=== PATIENT | female | born 1965 | race Caucasian/White ===

== ENCOUNTER 2025-01-24 12:45 | Day surgery (SDC) | payer BC, SELFPAY ==
--- OUTSIDE RECORDS SUMMARY | 2024-12-13 15:09 | XMS_ITS | Data Portability ---
Author Organization [facility] [employer], Meludia Address [address] [address] Care Team Providers Care Service Tech Name Role Phone EMILIANA CACERES Referring Provider [phone] EMILIANA CACERES Referring Provider [phone] EMILIANA CACERES Primary Care Provider [phone] Assessment Encounter Date Assessment Date Assessment LastModified by Organization Details LastModified Time 03/14/2023 03/14/2023 IMPRESSION: --Carpal tunnel syndrome, plausibly triggered by paint stripping activities and or aging mattress, explaining ~ onset of waking from sleep with 1 to 2-minute episodes of numbness in right and/or left hand/fingers; --Muscular syndrome, 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 --Uncertain neurological diagnosis for ~August/2021 onset of few second episodes of electric feeling in the center of her chest occurring a few times during lying in bed before going to sleep; --Neurological exam is normal. IMAGING Brain MRI without contrast December 15, 2022, per dictation, [facility] Dr. Kamar Douglas: Mild? A few small areas? Of increased T2/flair signal in subcortical and periventricular white matter bilaterally which is thought nonspecific. We discussed that the brain imaging results are benign. She mentions at the beginning of our encounter that she has some questions on details of the dictation. We do not to address this. I will try to address this at a follow-up. She agrees to appropriate blood work in the context of carpal tunnel syndrome. I suggest that she uses carpal tunnel syndrome splints that she has obtained during the day and any manual activities that are similar to the pain stripping activity? s he mentions that she will never do pain stripping again. We also discussed that if the carpal tunnel splints that she has are too awkward to wear during manual activities, she could obtain a Occupational Therapy referral to moved softer more appropriate carpal tunnel splints for daytime activities. I offered physical therapy for her posterior neck symptoms and she accepts. She requests a [place] to physical therapy as they have helped her in the past. I do not find any trigger points for her electrical feeling tired episodes in the center top of her chest. She reports she has had a Holter monitor and associates arrhythmia they have found on that, per patient, with these episodes. There was no pushbutton association so the data on this is soft. Muscular syndrome can do this. I will mention this to the physical therapist. Patient reports no medications. PCP chart reports aspirin, calcium, folate, glucosamine, iron, lysine, vitamin D3 PLAN Shraddha Azevedo March 14, 2023 Ovaries: Thyroid studies, fasting glucose, HbA1c, Lyme titer. Physical therapy, with home stretching exercises, for winter 2022 onset of waking with rhythmic expansion feeling at the back of the neck and much longer history of left-sided neck tightness, with onset after significant physical activity in November doing stripping of furniture. We have assessed for scalene tightness that might be associated with electric feeling episodes in the chest going to sleep at night. 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 --Uncertain neurological diagnosis for ~August/2021 onset of few second episodes of electric feeling in the center of her chest occurring a few times during lying in bed before going to sleep; --Neurological exam March 14, 2023 is normal. -- Brain MRI December 15, 2022: small areas of white matter changes [facility] April 14, 2023: HbA1c 5.6, glucose 90, Lyme titer negative She is happy about these results. I do not have the results of the thyroid testing that I sent. She has had thyroid testing previously with PCP but not since her onset and resolution of transient carpal tunnel syndrome symptoms. We agree that I will defer to primary care for retesting of thyroid function that might be indicated in this context. We go over the results of the brain MRI in more detail today: I explained the white matter changes. They are nonspecific. They can be markers of systemic diseases such as diabetes, hypertension, hypercholesterole pacheco, sleep apnea or atrial fibrillation. The only indication of the white matter disease would be to optimally manage such conditions. She has none of these conditions. I defer to primary care for optimal monitoring for these conditions. Sometimes, white matter changes are neuropathic and require wound management or further investigation. This is the case presently. She is satisfied with this explanation. Patient reports no medications. PCP chart reports aspirin, calcium, folate, glucosamine, iron, lysine, vitamin D3 PLAN Shraddha Azevedo May 23, 2023 PENDING Physical therapy, with home stretching exercises, for winter 2022 onset of waking with rhythmic expansion feeling at the back of the neck and much longer history of left-sided neck tightness, with onset after significant physical activity in November doing stripping of furniture. We have assessed for scalene tightness that might be associated with electric feeling episodes in the chest going to sleep at night. Follow-up as needed With insufficient benefit of physical therapy or with new/worsening/rec urrent neurological issues. [email or web address] Not available 05/23/2023 13:02:56 Plan of Treatment Reminders Order Date Submit Date Provider Last Modified By Organization Details Last Modified Time Details Appointments None recorded. Lab TSH + free T4, serum 2022 023 [email or web address] 1 [facility] (Centralized Electronic Ordering - All Locations), Patient Can Go To The Location Of Their Choice, [id number] 14:19:54 glucose, fasting, QN, serum or plasma 2022 023 [email or web address] 1 [facility] (Centralized Electronic Ordering - All Locations), Patient Can Go To The Location Of Their Choice, [id number] 3 14:19:55 HbA1c (hemoglobin A1c), blood 2022 023 TIFFANI [facility] (Centralized Electronic Ordering - All Locations), Patient Can Go To The Location Of Their Choice, [id number] 3 19:55:22 unlisted lab - lyme disease antibody w/reflex west blot 2022 023 TIFFANI [facility] (Centralized Electronic Ordering - All Locations), Patient Can Go To The Location Of Their Choice, [id number] 3 09:51:47 Referral neurologic physical therapist referral - Physical therapy, with home stretching exercises, for winter 2022 onset of waking with rhythmic expansion feeling at the back of the neck and much longer history of left-sided neck tightness, with onset after significant physical activity in November doing stripping of furniture. We have assessed for scalene tightness that might be associated with electric feeling episodes in the chest going to sleep at night. 2022 023 [email or web address] 1 [facility], [address] [facility], [place], [address], 10:42:15 Procedures nerve conduction study/EMG (PROC) 2022 023 [email or web address] 1 Not available 15:25:26 Surgeries None recorded. Imaging None recorded. Medication Orders None recorded. Patient TargetsNo targets recorded. Patient Instructions Encounter Date Encounter Id Patient Instructions Last Modified By Organization Details Last Modified Time 03/14/2023 [id number] Discussion acros s issues of diagnoses and management and same day associated chart review and management greater than 50% greater than 90 minutes [email or web address] Not available 03/14/2023 10:29:12 05/23/2023 [id number] PREVIUS DSCUSSSIONS initial neurology consultation March 14, 2023: I do not find any trigger points for her electrical feeling tired episodes in the center top of her chest. She reports she has had a Holter monitor and associates arrhythmia they have found on that, per patient, with these episodes. There was no pushbutton association so the data on this is soft. Muscular syndrome can do this. I will mention this to the physical therapist. Discussion across issues of diagnoses and management and same day associated chart review and management greater than 50% greater than 30 minutes sandra Not available 05/23/2023 12:58:54 Reason for Referral Physical therapy, with home stretching exercises, for winter 2022 onset of waking with rhythmic expansion feeling at the back of the neck and much longer history of left-sided neck tightness, with onset after significant physical activity in November doing stripping of furniture. We have assessed for scalene tightness that might be associated with electric feeling episodes in the chest going to sleep at night. Referring Physician: Ronnell Mtz, Neurology, Encounter Date: 03/14/2023 Results Created Date Observation Date Name Description Value Unit Range Abnormal Flag Note LastModifiedBy Organization Detail LastModifiedTime 04/14/2004/14/2023 GLUCO SE glucose 90 mg/dL (70-99 ) Not Available [facility] (Centralized Electronic Ordering - All Locations) Patient Can Go To The Location Of Their Choice, [id number] 04/14/2023 16:32:05 04/14/2004/14/2023 HEMOG LOBIN A1C hemoglobin A1C 5.6 % (4.0-5 .6) MONIT ORING : In known diabe tic patie nts, hemog lobin A1c targe ts shoul d be discu ssed with healt h care provi russell. DIAGN OSTIC USE: The Ameri can Diabe john Assoc iatio n (ADA) and the World Healt h Organ izati on (WHO) recom mend the use of HbA1c to diagn ose diabe john using a thres hold of 6.5%. Patie nts who have an HbA1c betwe en 5.7% and 6.4% are consi dered at incre ased risk for devel oping diabe john in the futur e. CAUTI ON: False ly low HbA1c resul ts may be obser adilia in patie nts with hemol ytic anemi a, homoz ygous forms of abnor mal hemog lobin (e.g. SS, CC, SC), pregn kaelyn, recen t blood loss or hemog lobin F great er than 7%. Fruct osami ne may be used as an alter christy test in these cases . REFER ENCE: ADA: Stand ards of Medic al Care in Diabe john 2019, The Journ al of Clini arielle and Appli ed Resea [facility] and Educa tion Volum e 43, Suppl ement 1 Not Available [facility] (Centralized Electronic Ordering - All Locations) Patient Can Go To The Location Of Their Choice, [facility] 04/14/2023 19:55:14 04/14/20 23 04/16/2023 LYME AB W/REF CUAUHTEMOC lyme Ab w/reflex (neg) NEGAT ANDREA NO ANTIB SAGAR TO BORRE LLIA BURGD ORFER I DETEC SIN. PATIE NTS IN EARLY STAGE S OF INFEC TION OR WHO WERE GIVEN EARLY ANTIB IOTIC TREAT MENT MAY NOT PRODU CE DETEC TABLE LEVEL S OF ANTIB SAGAR. THESE PATIE NTS WOULD BENEF IT FROM REPEA T TESTI NG IN 2 TO 4 WEEKS . Testi ng perfo rmed by the Bio-R ad BioPl ex 2200 multi plex flow immun oassa y syste m Not Available [facility] (Centralized Electronic Ordering - All Locations) Patient Can Go To The Location Of Their Choice, [facility] 04/16/2023 09:51:47 Result Notes None recorded. Procedures Surgical History Date Name Laterality Status Provider Name and Address Organization Details Recorded Time 05/23/2023 DATA REVIEW completed Ronnell Mtz MD [address] [place] [address], [id number], [facility] 05/23/2023 12:46:34 Imaging Results None recorded. Procedure Notes None recorded. Medical Equipment None Reported. Allergies Allergen ID Allergen Name Allergen Category Reaction Reaction Severity Criticality Documentation Date Start Date Code Code System Note Provider Name and Address Organization Details Recorded Time 275 Product containin g tetracycl ine and antibioti c (product) medicatio n Not available Not available Not available 03/14/2023 53452 1004 SNOMED [facility] 3 09:14:40 2755 codeine medicatio n Not available Not available Not available 03/14/2023 2670 RxNorm [place] [facility] 3 09:14:50 Vitals None Recorded Social History Question Answer Notes LastModified by Organizat ion Details LastModified Time Tobacco Smoking Status Former Smoker Licha martínez [facility] Neurology [facility] 03/14/2023 09:33:07 What Is Your Level Of Alcohol Consumption? None Information not available 03/14/2023 What Is Your Level Of Caffeine Consumption? Moderate Information not available 03/14/2023 What Is The Highest Grade Or Level Of School You Have Completed Or The Highest Degree You Have Received? [id number] Information not available 03/14/2023 Which Of Your Hands Is Dominant? Right Information not available 03/14/2023 What Is Your Relationship Status? Single Information not available 03/14/2023 Sex: Unknown Functional Status None recorded. Mental Status None recorded. Family History Relationship Description Onset Age of this Age Resolved Age Notes LastModified by Organization Details LastModified Time Father Type 2 diabetes mellitus [email or web address] Not available 09:15:27 Father Heart disease [email or web address] Not available 09:21:58 Father Hypertensive disorder [email or web address] Not available 09:22:27 Father Cerebrovascu lar accident [email or web address] Not available 03/14/2023 09:22:40 Brother Headache [email or web address] Not avai lable 03/14/2023 09:15:51 Brother Hypertensive disorder [email or web address] Not available 09:22:27 Sister Headache vworthington Not avail able 03/14/2023 09:15:51 Sister Disorder of thyroid gland [email or web address] Not available 09:23:00 Mother Heart disease vworthington Not available 09:21:31 Mother Hypertensive disorder vworthington Not available 09:22:27 Medical History No medical history recorded. Gynecological HistoryNo gynecological history recorded. 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 Bilateral carpal tunnel syndrome [id number] 0075837 G56.03 Health Concerns Section Related Observation LastModified by Organization Detai ls LastModified Time None Recorded Concern Status LastModified by Organization Details LastModified Time None Recorded Advance Directives Directive None Recorded Payers Encounter Date Sequence Insurance Name Policy Number Policy Soliz Covered Member ID Soliz Member ID Guarantor Name 03/14/2023 1 [place] 111 Shraddha Pierre Azevedo [id number] Shraddha Roberto Carlos 05/23/2023 1 [place] [employer] 111 Shraddha Pierre Azevedo [id number] Shraddha Azevedo Notes Date Note Type Note Provider Name and Address Organization Details Recorded Time 03/14/2023 text/html She presents for initial neurology consultation for assessment and management of three distinct syndromes:~ ebruary onset of waking from sleep with 1 to 2-minute episodes of numbness in right and/or left hand/fingers;~November 2022 onset of right after waking, up to seven rhythmic expansion pressure-like feelings about 1/s, at the back of her neck/skull base;~2021 onset of few second episodes of electric feeling in the center of her chest occurring a few times during lying in bed before going to sleep.In October or November 2022, she began to wake from sleep with numbness in one and/or the other hand. It has been the right hand most frequently and most frequently it occurs when she is sleeping on the side on which the symptoms emerge. Occasionally, symptoms occur if she is sleeping on her back and then symptoms tend to be with both. Symptoms feel like numbness throughout her hands and all fingers except the thumb, with digits 3-5 most prominently involved. Symptoms go away in just a few minutes. Probably occasionally where the waking is at her normal waking time (not usually, usually eats the middle of the night), if the symptoms are resolved by time she is up and in the middle of making herself some tea. Shaking the involved hand sometimes helps. Symptoms were happening at least once every night when they emerge. At some point in November, she began wearing carpal tunnel braces. These seem to help. Currently episodes are happening 1-2 times per week. She can think of no trauma, change in activity or change in stressor when symptoms emerge. She notes that she also changed her mattress and believes this is part of the reason why symptoms reduced in frequency. She wonders about the relationship of cracking in her neck that has happened intermittently since sometime in 2021. She has no headaches or neck pain. She has a many year history of left posterior neck stiffness that she associates with computer related activities. One visit to massage therapist has helped this.In addition, in early November 2022, she had onset of a rhythmic expanding relaxing pressure-like discomfort at the back of the neck/skull base upon waking in the morning. The rhythm seems about the same as the rhythm of her heartbeat. It is uncomfortable but not painful. It goes up to several cycles before resolving. There is no associated headache or any other symptoms. She remembers no changes stressors or injury before onset of symptoms. She does remember that she was outside stripping paint from an object in the day 4 days preceding onset of symptoms. Symptoms have not changed essentially since onset, continuing to happen most every morning at her normal waking,.In addition, in August or September 2022 she began to experience episodes of electric feeling in the upper center of her chest lasting a few seconds while laying down preparing to go to sleep in the evening. These episodes repeat a few times before she goes to sleep without any rhythm to their repetition. They continue to happen most every evening before she goes to sleep without essential change since onset. She can think of no injury, stressor, or change in activities in the time preceding onset of the symptoms. Ronnell Mtz MD [address] [place] [address] [place], [phone], [facility] Neurology [facility] 03/14/2023 10:29:58 05/23/2023 text/html Neurology follow-upof three distinct syndromes:~ ebruary onset of waking from sleep with 1 to 2-minute episodes of numbness in right and/or left hand/fingers;~November 2022 onset of right after waking, up to seven rhythmic expansion pressure-like feelings about 1/s, at the back of her neck/skull base;~August/2021 onset of few second episodes of electric feeling in the center of her chest occurring a few times during lying in bed before going to sleep. Since initial neurology consultation March 14, 2023, the numbness in right and/or left fingers waking her at night 1-2 times per week eventually resolved. She thinks that her mattress being better has something to do with it. Her neck cracking symptoms and her neck/skull base discomfort at waking in the morning continue unchanged. Physical therapy for this is pending to start shortly. She has no new symptoms of concern.>>>>>>>>>>>> >>>>>>>>>>>>>>>Prese nting symptomatology from initial neurology consultation, March 14, 2023: In October or November 2022, she began to wake from sleep with numbness in one and/or the other hand. It has been the right hand most frequently and most frequently it occurs when she is sleeping on the side on which the symptoms emerge. Occasionally, symptoms occur if she is sleeping on her back and then symptoms tend to be with both. Symptoms feel like numbness throughout her hands and all fingers except the thumb, with digits 3-5 most prominently involved. Symptoms go away in just a few minutes. Probably occasionally where the waking is at her normal waking time (not usually, usually eats the middle of the night), if the symptoms are resolved by time she is up and in the middle of making herself some tea. Shaking the involved hand sometimes helps. Symptoms were happening at least once every night when they emerge. At some point in November, she began wearing carpal tunnel braces. These seem to help. Currently episodes are happening 1-2 times per week. She can think of no trauma, change in activity or change in stressor when symptoms emerge. She notes that she also changed her mattress and believes this is part of the reason why symptoms reduced in frequency. She wonders about the relationship of cracking in her neck that has happened intermittently since sometime in 2021. She has no headaches or neck pain. She has a many year history of left posterior neck stiffness that she associates with computer related activities. One visit to massage therapist has helped this.In addition, in early November 2022, she had onset of a rhythmic expanding relaxing pressure-like discomfort at the back of the neck/skull base upon waking in the morning. The rhythm seems about the same as the rhythm of her heartbeat. It is uncomfortable but not painful. It goes up to several cycles before resolving. There is no associated headache or any other symptoms. She remembers no changes stressors or injury before onset of symptoms. She does remember that she was outside stripping paint from an object in the day 4 days preceding onset of symptoms. Symptoms have not changed essentially since onset, continuing to happen most every morning at her normal waking,.In addition, in August or September 2022 she began to experience episodes of electric feeling in the upper center of her chest lasting a few seconds while laying down preparing to go to sleep in the evening. These episodes repeat a few times before she goes to sleep without any rhythm to their repetition. They continue to happen most every evening before she goes to sleep without essential change since onset. She can think of no injury, stressor, or change in activities in the time preceding onset of the symptoms. Ronnell Mtz MD [address] [place] [address] [place], [address], [facility] Neurology [facility] 05/23/2023 13:03:10 OBGyn Episode No OBEpisode recorded.
--- OUTSIDE RECORDS SUMMARY | 2024-12-13 15:09 | XMS_ITS | Clinical Summary ---
Author Organization [facility] Address [address] [place] [id number] Care Team Providers Care Sheet Rock Installer Name Role Phone Pcp, No MD Primary Care Provider Unavailabl e Allergies Active Allergy Reactions Criticality Noted Date Comments Codeine 06/29/2020 Tetracycline 06/29/2020 Medications oxyCODONE-acetam inophen (Percocet) 5-325 mg per tablet SI-2 tabs per dose po q4hrs as needed for pain. May cause drowsiness; do not drive. 12 tablet 06/29/2020 Active oxyCODONE-acetam inophen (PERCOCET) 5-325 mg per tablet 1 po q6 hrs PRN pain 30 tablet 07/06/2020 Active Social History Tobacco Use Types Packs/Day Years Used Date Smoking Tobacco: Never Smokeless Tobacco: Never Alcohol Use Standard Drinks/Week Comments Not Currently 0 (1 standard drink = 0.6 oz pur e alcohol) Comments No Sex and Gender Information Value Date Recorded Sex Assigned at Not on file Legal Sex Female 4:21 PM EDT Gender Identity Female 12/14/2020 7:32 PM EDT Sexual Orientation Lesbian 12/14/2020 7: 32 PM EDT Last Filed Vital Signs Vital Sign Reading Time Taken Comments Blood Pressure 124/73 07/06/2020 4:00 PM EDT Pulse 75 07/06/2020 4:00 PM EDT Temperature 36.2 ??C (97.1 ??F) 07/06/2020 4:00 PM ED T Respiratory Rate 16 07/06/2020 4:00 PM EDT Oxygen Saturation 96% 07/06/2020 4:00 PM EDT Inhaled Oxygen Concentration - - Weight 85.4 kg (188 lb 3.2 oz) 07/06/2020 11:55 AM EDT Height 180.3 cm (5' 11 ) 07/03/2020 3:56 PM EDT Body Mass Index 26.25 07/03/2020 3:56 PM EDT Plan of Treatment Health Maintenance Due Date Last Done Comments Breast Cancer Screening 1965 CT Colonography 1965 Colonoscopy 1965 Colorectal Cancer Screening 1965 FIT-DNA (Cologuard) 1965 FIT 1965 FOBT 1965 Flex Sigmoidoscopy - 5y 1965 HIV Screening 1965 Hepatitis B Vaccines (1 of 3 - 19+ 3-dose series) 01/09/1984 Pap Smear 1986 Cervical Cancer Screening 1995 HPV/Cotest 1995 DTaP,Tdap,and Td Vaccines (1 - Tdap) 11/02/2012 11/01/2012 Zoster Vaccines (1 of 2) 2015 COVID-19 Vaccine (1 - 2023-2 5 season) 2024 Influenza Vaccine (#1) 2024 06/25/2013 HPV Vaccines Aged Out No longer eligi ble based on patient's age to complete this topic Hepatitis A Vaccines Aged Out No long er eligible based on patient's age to complete this topic MMR Vaccines Aged Out No longer eligi ble based on patient's age to complete this topic Meningococcal Vaccine Aged Out No kera reyes eligible based on patient's age to complete this topic Pneumococcal Vaccine: Pediat rics (0 to 5 Years) and At-Risk Patients (6 to 64 Years) Aged Out No longer eligi ble based on patient's age to complete this topic Medical Devices Implanted Type Area Diploma Dental Assistant Device Identifier Shelf Expiration Date Model / Serial / Lot Geminus Fossa Specific Plate, 4hole, Standard, Left, Titanium - [id number] Implanted:Qty: 1 on 07/06/2020 by Alberto Blum MD at [facility] [place] [facility] Plate Left: [employer] [facility] 10/02/2023 GMN-LTS- 4HL / / N/A 3.5mm X 13mm Geminus Cortical Non-Locking Screw, Titanium - [id number] Implanted:Qty: 3 on 07/06/2020 by Alberto Blum MD at [facility] Screw Left: [employer] 10/02/2022 PANL-351 30-TS / / N/A 3.5mm X 12mm Geminus Cortical Non-Locking Screw, Titanium - [id number] Implanted:Qty: 1 on 07/06/2020 by Alberto Blum MD at [facility] Orth[facility] Screw Left: [employer] 10/02/2022 PANL-351 20-TS / / N/A 3.5mm X 12mm Geminus Cortical Locking Screw, Titanium - [id number] Implanted:Qty: 1 on 07/06/2020 by Alberto Blum MD at [facility] Ortho Screw Left: [employer] 10/02/2022 COLS-351 20-TS / / N/A 2.5mm X 18mm Geminus Polyaxial Locking Screw, [place]-Chromium - [id number] Implanted:Qty: 1 on 07/06/2020 by Alberto Blum MD at [facility] Ortho Screw Left: [employer] 10/02/2022 PALS-251 80-CC / / N/A 2.5mm X 20mm Geminus Polyaxial Locking Screw, [place]-Chromium - [id number] Implanted:Qty: 1 on 07/06/2020 by Alberto Blum MD at [facility] Ortho Screw Left: [employer] 10/02/2022 PALS-252 00-CC / / N/A 3.5mm X 11mm Geminus Cortical Non-Locking Screw, Titanium - [id number] Implanted:Qty: 1 on 07/06/2020 by Alberto Blum MD at [facility] Ortho Screw Left: [employer] 10/02/2022 PANL-351 10-TS / / N/A 2.3mm X 20mm Geminus Threaded Locking Peg, Titanium - [id number] Implanted:Qty: 3 on 07/06/2020 by Alberto Blum MD at [facility] Surgical Fixation Device Left: [employer] 10/02/2022 TPLS-232 00-TS / / N/A 2.7mm X 24mm Geminus Threaded Non-Locking Peg, Titanium - [id number] Implanted:Qty: 1 on 07/06/2020 by Alberto Blum MD at [facility] Surgical Fixation Device Left: [employer] 10/02/2022 TPNL-272 40-TS / / N/A 2.3mm X 16mm Geminus Threaded Locking Peg, Titanium - [id number] Implanted:Qty: 1 on 07/06/2020 by Alberto Blum MD at [facility] Surgical Fixation Device Left: [employer] 10/02/2022 TPLS-231 60-TS / / N/A 2.3mm X 18mm Geminus Threaded Locking Peg, Titanium - [id number] Implanted:Qty: 1 on 07/06/2020 by Alberto Blum MD at [facility] Surgical Fixation Device Left: [employer] 10/02/2022 TPLS-231 80-TS / / N/A Explanted Type Area Diploma Dental Assistant Device Identifier Shelf Expiration Date Model / Serial / Lot 3.5mm X 12mm Geminus Cortical Non-Locking Screw, Titanium - [id number] Implanted: 0 (Quantity not on file) Explanted:Qty: 1 on 07/06/2020 by Alberto Blum MD at [facility] Ortho Screw [employer] 10/02/2022 PANL-3512 0-TS / / N/A 2.7mm X 24mm Geminus Threaded Non-Locking Peg, Titanium - [id number] Implanted: 0 (Quantity not on file) Explanted:Qty: 1 on 07/06/2020 by Alberto Blum MD at [facility] Surgical Fixation Device [employer] 10/02/2022 TPNL-2724 0-TS / / N/A Insurance Advance Directives For more information, please contact: [phone] Documents on File Type Date Recorded Patient Hospice Physician Expl anation Advance Directives 07/08/2020 1:02 PM Care Teams Sheet Rock Installer Relationship Specialty Start Date End Date PcpKathleen MD [address] [place] [address] PCP - General Internal Medicine 06/29/20
--- OUTSIDE RECORDS SUMMARY | 2024-12-13 15:09 | XMS_ITS | Clinical Summary ---
Author Organization [facility] [employer] Address [address] [place] [address] [address] [place] [address] Care Team Providers Care Rehabilitation Services Director Name Role Phone Jorge Alberto Ramos Unassigned Primary Care Provider U navailable Allergies Active Allergy Reactions Criticality Noted Date Comments Metronidazole 06/20/2017 Tetracycline Rash,Hives Low 01/30/2017 Immunizations Name Administration Dates Next Due Tdap 06/12/2017 Social History Tobacco Use Types Packs/Day Years Used Date Smoking Tobacco: Never Assessed Comments Unknown Sex and Gender Information Value Date Recorded Sex Assigned at Not on file Legal Sex Female 6:22 PM EDT Gender Identity Female 07/29/2022 6:22 PM EDT Sexual Orientation Lesbian 07/29/2022 6: 22 PM EDT Last Filed Vital Signs Vital Sign Reading Time Taken Comments Blood Pressure 124/86 08/05/2020 8:44 AM EST Pulse 0 08/05/2020 8:44 AM EST Temperature - - Respiratory Rate - - Oxygen Saturation 98% 08/05/2020 8:44 AM EST Inhaled Oxygen Concentration - - Weight 86.2 kg (190 lb) 08/05/2020 8:44 AM EST Height 177.8 cm (5' 10 ) 08/05/2020 8:44 AM EST Body Mass Index 27.26 08/05/2020 8:44 AM EST Plan of Treatment Health Maintenance Due Date Last Done Comments CT Colonography 1965 Depression Screening 1965 FIT DNA/Cologuard 1965 FIT 1965 FOBT 1965 Sigmoidoscopy 1965 Alcohol/Substance Use Screening 1977 Tobacco Screening 1977 Hepatitis B Vaccines (1 of 3 - 19+ 3-dose series) 01/09/1984 Pap Smear 1986 Cervical Cancer Screening 1995 HPV/Cotest 1995 Pneumococcal Vaccine: 50+ Years (1 of 1 - PCV) 2015 Zoster Vaccines (1 of 2) 2015 Mammogram 12/01/2021 12/02/2019, 06/14/2018 COVID-19 Vaccine ( - 2023-2 5 season) 2024 Influenza Vaccine (#1) 2024 Colonoscopy 12/13/2025 12/14/2015 Colorectal Cancer Screening 12/13/2025 DTaP/Tdap/Td Vaccines (2 - T d or Tdap) 06/12/2027 06/12/2017 RSV Patients and Patients Aged 60 years or older (1 - 1-dose 75+ series) 01/09/2040 HIB Vaccines Aged Out No longer eligi ble based on patient's age to complete this topic HPV Vaccines Aged Out No longer eligi ble based on patient's age to complete this topic Hepatitis A Vaccines Aged Out No long er eligible based on patient's age to complete this topic IPV Vaccines Aged Out No longer eligi ble based on patient's age to complete this topic Meningococcal Vaccine Aged Out No kera reyes eligible based on patient's age to complete this topic Pneumococcal Vaccine: Pediatrics (0 to 5 Years) and At-Risk Patients (6 to 49) Years) Aged Out No longer eligible b ased on patient's age to complete this topic RSV under 20 months Aged Out No longe r eligible based on patient's age to complete this topic Rotavirus Vaccines Aged Out No longer eligible based on patient's age to complete this topic Procedures Procedure Name Priority Date/Time Associated Diagnosis Comments MAMMOGRAM GENERIC Routine 12/02/2019 12: 00 AM EST COLONOSCOPY Routine 12/14/2015 12:00 AM EDT from Last 3 Months or Most Recently Relevant to Health Maintenance Results * MM Digital Mammo Scr (12/02/2019 12:00 AM EST) Anatomical Region Laterality Modality Breast Bilateral Mammography 12/02/2019 Narrative 12/02/2019 12:00 AM EST Refer to the Notes tab for result details Legacy Procedure: MM Digital Mammo Scr Procedure Note Provider, Saundra, - 12/24/2022 Refer to the Notes tab for result details Legacy Procedure: MM Digital Mammo Scr us Historical Provider IMNoemi BI PROCEDURES Final R esult * Colonoscopy (12/14/2015 12:00 AM EDT) Anatomical Region Laterality Modality Endoscopy 12/14/2015 Narrative 12/14/2015 12:00 AM EDT Refer to the Notes tab for result details Legacy Procedure: Colonoscopy Procedure Note Provider, MD Saundra - 12/24/2022 Refer to the Notes tab for result details Legacy Procedure: Colonoscopy us Historical Provider ENDOSCOPY PROCEDURE ORDER ERNESTINA Final Result from Last 3 Months or Most Recently Relevant to Health Maintenance Care Teams Rehabilitation Services Director Relationship Specialty Start Date End Date Jorge Alberto Ramos Unasslea PCP - General Family Medicine 01/10/23
[2025-01-22 13:35] VITALS: BMI 25.5
--- NOTE | 2025-01-23 09:42 | HO.ANESPROP2 ---
Documented by User: Salud Gonzalez NP 01/23/25 09:43 HPI - Anesthesia Eval Consult details Narrative: 60yo F for Right Foot Arthroplasty (2nd digit Hammer toe) Medically optimized per [facility] preop clinic REPLACED BY [facility] Past Medical History Medical History (Updated 01/22/25 @ 13:35 by Analia Kumari RN) Anemia Tubular adenoma of colon Sprain of right index finger Rosacea Osteopenia Insomnia Genitourinary syndrome of menopause Basal cell carcinoma Bladder spasms Surgical History Surgical History (Updated 01/22/25 @ 13:23 by Analia Kumari RN) History of surgery on left wrist H/O colonoscopy Social History Social History Patient Tobacco Use Status: Former Tobacco user Use of substances other than those prescribed or required for medical reasons: No Advance Directives: No Advance Directives Information Provided: Yes Patient : No : No Poor oral hygiene: No Meds Allergies Allergy/AdvReac Type Severity Reaction Status Date / Time codeine Allergy Anaphylaxis Verified 01/24/25 13:13 tetracycline Allergy Rash Verified 01/24/25 13:13 metronidazole AdvReac Fatigued Verified 01/24/25 13:13 Home Medications ?Medication ?Instructions ?Recorded ?Confirmed ?Last Taken ?Type aspirin 81 mg tablet,delayed 81 mg PO DAILY 01/22/25 01/22/25 Unknown History release calcium no.26 167 mg-magnesium 2 cap PO DAILY 01/22/25 01/22/25 Unknown History no.15 83 mg-zinc 5 mg capsule cholecalciferol (vitamin D3) 25 25 mcg PO DAILY 01/22/25 01/22/25 Unknown History mcg (1,000 unit) capsule (Vitamin D3) folic acid 1 mg tablet 1 mg PO DAILY 01/22/25 01/22/25 Unknown History sgczlliy-lpv-ncfpbhbyu-C-hyaluronic 1 tab PO DAILY 01/22/25 01/22/25 Unknown History 500 mg-300 mg-400 mg-10 mg tablet iron-vit C-vit E94-bohrt acid 100 1 tab PO DAILY 01/22/25 01/22/25 Unknown History mg-250 mg-25 mcg-1 mg tablet (Iron) lysine 500 mg tablet 500 mg PO DAILY 01/22/25 01/22/25 Unknown History Exam Height,Weight and Vital Signs: Height 5 ft 10.87 in Weight 82.5 kg Assessment and Plan Assessment Anesthesia Assessment: Chart Reviewed Documented by User: Rusty Cervantes MD 01/24/25 14:20 PMFSH Past Medical History Medical History (Updated 01/22/25 @ 13:35 by Analia Kumari RN) Anemia Tubular adenoma of colon Sprain of right index finger Rosacea Osteopenia Insomnia Genitourinary syndrome of menopause Basal cell carcinoma Bladder spasms Family History Family history of problems with anesthesia: No Surgical History Surgical History (Updated 01/22/25 @ 13:23 by Analia Kumari RN) History of surgery on left wrist H/O colonoscopy History of Problems with Anesthesia: No Social History Social History Patient Tobacco Use Status: Former Tobacco user Use of substances other than those prescribed or required for medical reasons: No Advance Directives: No Advance Directives Information Provided: Yes Patient : No : No Poor oral hygiene: No Meds Allergies Allergy/AdvReac Type Severity Reaction Status Date / Time codeine Allergy Anaphylaxis Verified 01/24/25 13:13 tetracycline Allergy Rash Verified 01/24/25 13:13 metronidazole AdvReac Fatigued Verified 01/24/25 13:13 Home Medications ?Medication ?Instructions ?Recorded ?Confirmed ?Last Taken ?Type aspirin 81 mg tablet,delayed 81 mg PO DAILY 01/22/25 01/22/25 Unknown History release calcium no.26 167 mg-magnesium 2 cap PO DAILY 01/22/25 01/22/25 Unknown History no.15 83 mg-zinc 5 mg capsule cholecalciferol (vitamin D3) 25 25 mcg PO DAILY 01/22/25 01/22/25 Unknown History mcg (1,000 unit) capsule (Vitamin D3) folic acid 1 mg tablet 1 mg PO DAILY 01/22/25 01/22/25 Unknown History iqotxued-hqi-oeglshzzg-C-hyaluronic 1 tab PO DAILY 01/22/25 01/22/25 Unknown History 500 mg-300 mg-400 mg-10 mg tablet iron-vit C-vit Z48-qqfvi acid 100 1 tab PO DAILY 01/22/25 01/22/25 Unknown History mg-250 mg-25 mcg-1 mg tablet (Iron) lysine 500 mg tablet 500 mg PO DAILY 01/22/25 01/22/25 Unknown History Exam Airway Mallampati Class: II TM Dist: <=3cm Neck ROM: Full Loose/Missing/Broken Teeth: No Heart: ok Lungs: ok Assessment and Plan Assessment Anesthesia Assessment: Anesthesia Plan Discussed Final Anesthetic Review Family History of Problems with Anesthesia: No History of Problems with Anesthesia: No NPO: Yes ASA Class: II Final Preanesthetic Review: No Changes in Pt Med Stat, Meds/Allgs Chart Reviewed, Consent Obtained/Reviewed and Anes Risks/Benef Reviewed Patient Risk: Low Procedure Risk: Low Anesthetic Plan Anesthetic Plan: MAC: and Agree w/ Assess. and Plan Disposition: Standard PACU
[2025-01-24 13:09] VITALS: BMI 24.4
[2025-01-24 13:26] VITALS: BP 102/69; PULSE 68; RESP 16; TEMP 37.1; O2SAT 94
[2025-01-24] MEDS: Lactated Ringers 1,000 ML 100 ML IVCONT (13:34)
[2025-01-24 15:00] VITALS: BP 119/65; PULSE 60; RESP 18; TEMP 36.3; O2SAT 98
[2025-01-24 15:05] VITALS: BP 120/60; PULSE 60; RESP 18; O2SAT 98
[2025-01-24 15:10] VITALS: BP 115/65; PULSE 60; RESP 18; TEMP 36.3; O2SAT 100
[2025-01-24 15:15] VITALS: BP 113/64; PULSE 58; RESP 18; TEMP 36.3; O2SAT 99
--- NOTE | 2025-01-25 03:55 | OP_ITS ---
DATE OF SERVICE: 01/24/2025 SURGEON: Pablo Mendez DPM INDICATIONS: This patient has been a patient of mine for some time now and exhausted all conservative care. Patient has an extremely contracted second digit of the right foot secondary to biomechanics and a bunion of the right. It must be noted that patient had a very large benign lesion on the interphalangeal joint of the right second digit, which was removed during the surgery. It must be noted that patient had requested no bone fracturing or hardware in the right foot following the procedure. This patient has been in a lot of pain in the second toe with extreme contracture and once again conservative measures have been exhausted. Patient had requested surgery. Patient understands that without osteotomy there maybe still some contracture of the digit, but patient's main goal is to have the second digit not rubbed as much in the top of the right shoe. Patient was willing to take that chance. PREOPERATIVE DIAGNOSIS: POSTOPERATIVE DIAGNOSIS: PROCEDURE PERFORMED: ESTIMATED BLOOD LOSS: None. COMPLICATIONS: ANESTHESIA: Local monitored anesthesia care with local digital block, 50:50 of 0.5% plain Marcaine and 1% plain lidocaine, totalling 17 cc. ASSISTANTS: None. 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 PROCEDURES PERFORMED: Arthroplasty of the second digit of the right foot as well as a capsular release of the metatarsophalangeal joint and capsulotomy of the second metatarsophalangeal joint of the right foot. MATERIALS: 3-0 Vicryl, 3-0 Prolene. DISPOSITION: Patient tolerated the procedure and anesthesia well and was wheeled back to recovery room with vital signs stable, in no acute distress. Capillary refill time was less than 3 seconds in all digits of the surgical right foot. DESCRIPTION OF PROCEDURE: Patient was brought into the operating room via gurney and placed on the operating table in the supine position. Patient was given an injection of a local block fashion into the second digit both proximally of the MPJ joint and of the digit. This totaled 17 cc. Next, the patient's foot was scrubbed and draped in normal orthopedic fashion. attention was directed to the second digit dorsally where the small incision was made over the area of the IP joint. This was removing in total a very large painful lesion during this skin ellipse removal. Once this incision was made, a new blade was used in order to successfully dissect paying attention to all the vascularity. The tendon was retracted. The capsular structures to the proximal interphalangeal joint were visualized. Once that visualized, the capsule was reflected off the head of the proximal phalanx. At this time, it was noted that the head was visible. A double-action bone cutter was used in order to remove the head and part of the neck. It must be noted that the bone was extremely soft. A rongeur was used in order to realm and smooth the bone as best as possible, but the bone was extremely soft. Once this was accomplished, copious amounts of normal sterile saline used in order to lavage the area. 3-0 Vicryl was used in order to sew up the tendons of the digit as well as 3-0 Vicryl for the deeper layers. It must be noted that the digit was relatively straight at this point. It must be noted that surgical suturing was done in order to have the toe conformed to the shape of the foot in which the patient had a medium-sized bunion, so the toe was directed, a little bit abducted. This falls in line with the digits, which should cause at least overlap as possible. Next, attention was directed to the second MPJ wherein approximately 6 cm incision was made over the MPJ head and capsule all the way down to the joint. Once this incision was made, it must be noted that a capsulotomy was done and the second MPJ area was freed up using a [place]. This was done in order to decrease the amount of contracture of the right second digit at the MPJ joint. This capsulotomy was deemed successful since pressure to mimic weightbearing was placed on the metatarsal head and there was much less contracture present. I do not think a need for an osteotomy at this point would be needed anyway even if the patient chose that, which she did not. It must be noted that copious amounts of normal sterile saline were used in order to lavage the area and any tissue that was disturbed was sewn using 3-0 Vicryl deep. 3-0 Vicryl was used in order to sew up the layers underneath the skin and then 3-0 Prolene on the skin. Once this was all accomplished, it must be noted that pressure was placed underneath the ball of the foot and the toe was in a very good position with limited contracture and limited hammertoe. The toe was not perfect, but the toe should cause the patient allow this pain on weightbearing through less rubbing on the top and less pain in the metatarsal area. Once this was all tested, Xeroform was placed over the incision site followed by copious amounts of gauze, fluff and Rico, and an Sage wrap was wrapped over the whole area. Patient was wheeled to the recovery room in no acute distress and vital signs stable. No problems immediately to the foot with good capillary refill time as indicated above. Patient had filled previous ibuprofen as well as antibiotics prior to the procedure. Patient was also given 30 mg of Toradol IV during the procedure to limit pain and swelling. Patient was given 2 g of Kefzol by anesthesiologist as well. Patient will follow up with me in 3 days in my office. HEMOSTASIS: None. AVE Rodriges/FARZANEH / [id number]
== END 2025-01-24 15:54 | disposition home or self-care (01) ==
LOC: HO.SSS 12:46
PROVIDERS: PCP Family Medicine; Visit Provider Podiatrist
PROC: (CPT 28899; principal; 2025-01-24 14:30)
DX: M20.41 Other hammer toe(s) (acquired), right foot (principal); M79.674 Pain in right toe(s); M21.611 Bunion of right foot; M85.80 Other specified disorders of bone density and structure, unspecified site; Z85.828 Personal history of other malignant neoplasm of skin; Z79.82 Long term (current) use of aspirin; Z79.899 Other long term (current) drug therapy; Z88.1 Allergy status to other antibiotic agents; Z88.5 Allergy status to narcotic agent; Z87.891 Personal history of nicotine dependence
CPT/HCPCS: 28285; 28270; J0665; J0690; J1885; J2003; J2250; J2704; J3010